=== PATIENT | male | born 1990 | race Caucasian/White ===

== ENCOUNTER 2020-11-17 12:06 | Emergency (ER) | payer OTHER ==
[~2020-11-17] VITALS: Ht 185.4 cm; Wt 86.2 kg
[2020-11-17 13:29] LABS: ABSOLUTE EOSINOPHILS 0.2 thou/uL (0.0-0.7); ABSOLUTE LYMPHOCYTES 2.4 thou/uL (0.8-5.3); ABSOLUTE MONOCYTES 0.6 thou/uL (0.0-1.2); ABSOLUTE NEUTROPHILS 3.9 thou/uL (1.6-8.1); BASOPHILS 0.6 %; EOSINOPHILS 3.4 %; HEMATOCRIT 47.1 % (42.0-52.0); HEMOGLOBIN 15.6 gm/dL (14.0-18.0); LYMPHOCYTES 33.6 %; MCHC 33.1 g/dL (28.0-37.0); MCV 81.6 fL (80.0-100.0); MONOCYTES 8.8 %; MPV 8.9 fl. (7.2-11.1); NUCLEATED RBCS 0 /100WBC; PLATELET COUNT* 232 thou/uL (150-400); POLYS 53.6 %; RBC 5.77 mil/uL (4.50-6.00); RDW-CV 13.8 % (10.5-14.5); WBC 7.3 thou/uL (4.0-11.0)
[2020-11-17 13:42] LABS: CALCIUM 9.1 mg/dL (8.5-10.1); CREATININE 1.2 mg/dL (0.6-1.3); POTASSIUM 4.3 mmol/L (3.5-5.1)
[2020-11-17 13:45] LABS: APTT 25.1 Seconds (25.0-31.3); PROTIME 10.4 Seconds (9.20-11.50)
[2020-11-17 13:47] LABS: ALBUMIN 4.2 g/dL (3.4-5.0); TOTAL BILIRUBIN 0.4 mg/dL (<0.1-1.0); TOTAL PROTEIN 7.4 g/dL (6.4-8.2)
[2020-11-17 14:01] LABS: MAGNESIUM 2.2 mg/dL (1.8-2.4)
[2020-11-17] MEDS ORDERED: VENTOLIN HFA 1818 GM INH (14:38)
[2020-11-17] MEDS ORDERED: TESSALON PERLE100 MG PO (14:38)
[2020-11-17] MEDS ORDERED: MEDROLDOSEPACK PO (14:38)
[2020-11-17] MEDS ORDERED: BUTALB-APAP-CA1 EACH PO (14:39)
[2020-11-17 15:12] VITALS: BP 102/57
--- NOTE | 2020-11-17 17:11 | EKG ---
[place] [address] ELECTROCARDIOGRAM REPORT Name: KAYLI,SHAZIA KRISHNA JR Room: [facility]#: [id number] Admission: 11/17/20 Attend Phys: Discharge: 11/17/20 Date of : 88 Date of Service: 11/17/20 1330 Report #: [id number] THIS REPORT FOR: //name// [facility] ED Test Date: 2020-11-17 Test Time: 13:30:37 Pat Name: SHAZIA MILAN Department: Room: Gender: [employer] Demonstr[employer]: TDS : 1990 Requested By: Faith Bates Order Number: [id number] : Moe Maria Measurements Intervals [place] Rate: 60 P: 33 AK: 181 QRS: 5 QRSD: 84 T: 20 QT: 386 QTc: 386 Interpretive Statements Sinus rhythm Baseline wander in lead(s) V1 No previous ECG available for comparison Electronically Signed On 11-17-2020 17:11:27 CDT by Moe Maria [email or web address] <ELECTRONICALLY SIGNED> By: Moe Maria MD, [facility] 11/17/20 1711 1330 1330 Moe Maria MD, [facility] /EPI
== END 2020-11-17 15:19 | disposition home or self-care (01) ==
LOC: M.ERS 12:06
PROVIDERS: Nurse Practitioner Family
DX: G43.909 Migraine, unspecified, not intractable, without status migrainosus (principal); Z20.822 Contact with and (suspected) exposure to COVID-19; B34.9 Viral infection, unspecified; R07.89 Other chest pain; Z86.73 Personal history of transient ischemic attack (TIA), and cerebral infarction without residual deficits; Z88.0 Allergy status to penicillin; Z88.1 Allergy status to other antibiotic agents